=== PATIENT | male | born 1970 | race Two or more races ===

== ENCOUNTER 2019-10-24 20:19 | Emergency (ER) | payer MEDICAID ==
[~2019-10-24] VITALS: Ht 185.4 cm; Wt 142.9 kg
[2019-10-24] MEDS ORDERED: KETOROLAC TROMETH 60MG/2ML VIAL IM ONE (21:45)
[2019-10-24] MEDS ORDERED: TETANUS-DIPTH-ACEL PERTUSSIS 0.5ML SYR Tdap IM ONE (21:45)
[2019-10-24 22:08] VITALS: BP 136/91
== END 2019-10-24 22:40 | disposition home or self-care (01) ==
LOC: ER 20:23 → EDSEX 20:23 → ER 22:40
DX: S63.91XA Sprain of unspecified part of right wrist and hand, initial encounter (principal); Z88.8 Allergy status to other drugs, medicaments and biological substances; Z88.5 Allergy status to narcotic agent; W01.0XXA Fall on same level from slipping, tripping and stumbling without subsequent striking against object, initial encounter; Y93.89 Activity, other specified; Y92.89 Other specified places as the place of occurrence of the external cause; Y99.8 Other external cause status
CPT/HCPCS: 73130; 90471; 90715; 96372; 99284; J1885

== ENCOUNTER 2019-10-28 15:33 | Emergency (ER) | payer MEDICAID ==
[~2019-10-28] VITALS: Ht 185.4 cm; Wt 142.9 kg
[2019-10-28 15:46] VITALS: BP 162/90
[2019-10-28] MEDS ORDERED: cefTRIAXone SOD 1,000 MG VL IM ONE (16:15)
== END 2019-10-28 16:56 | disposition home or self-care (01) ==
LOC: ER 15:33
DX: S61.431A Puncture wound without foreign body of right hand, initial encounter (principal); E11.9 Type 2 diabetes mellitus without complications; I10 Essential (primary) hypertension; Z88.6 Allergy status to analgesic agent; Z76.0 Encounter for issue of repeat prescription; W51.XXXA Accidental striking against or bumped into by another person, initial encounter; Y93.89 Activity, other specified; Y92.89 Other specified places as the place of occurrence of the external cause; Y99.8 Other external cause status
CPT/HCPCS: 10060; 96372; 99283; J0696